=== PATIENT | male | born 2000 | race African-American/Black ===

== ENCOUNTER 2020-11-09 02:40 | Emergency (ER) | payer BC ==
[~2020-11-09] VITALS: Ht 182.9 cm; Wt 72.6 kg
[2020-11-09 02:49] VITALS: BP 114/72
--- NOTE | 2020-11-09 02:52 | NUR ---
PT TAKEN TO BED 7
[2020-11-09] MEDS ORDERED: DICYCLOMINE HCL LIQUID 20 MG, ALUMINUM HYD/MAG/SIMETHICONE 30 ML, LIDOCAINE VISCOUS 2% ... PO ONE ×3 (03:10)
[2020-11-09] MEDS ORDERED: ONDANSETRON 4 MG ODT PO ONE (03:10)
--- NOTE | 2020-11-09 03:18 | NUR ---
See patient assessment for more information. Patient lying in bed locked in lowest position, HOB elevated, x1 side rail up. Breathing even and unlabored. NAD noted, will continue to monitor. Mother at bedside.
--- NOTE | 2020-11-09 03:20 | NUR ---
ERMD at bedside assessing patient.
[2020-11-09] MEDS ORDERED: LIDOCAINE VISCOUS 2% 20 ML UDC ONE (03:22)
[2020-11-09] MEDS ORDERED: ALUMINUM HYD/MAG/SIMETHICONE 30 ML UDC ONE (03:23)
[2020-11-09] MEDS ORDERED: DICYCLOMINE HCL LIQUID 10 MG/5 ML UDC ONE (03:23)
--- NOTE | 2020-11-09 03:26 | NUR ---
Dr. Woodward examining patient.
[2020-11-09] MEDS ORDERED: ONDA-24 SL ×2 (03:48→03:58)
[2020-11-09 03:58] VITALS: BP 114/72
== END 2020-11-09 03:58 | disposition home or self-care (01) ==
LOC: MED 02:40
DX: K29.70 Gastritis, unspecified, without bleeding (principal); A05.9 Bacterial foodborne intoxication, unspecified; R11.10 Vomiting, unspecified; F12.90 Cannabis use, unspecified, uncomplicated; Z79.899 Other long term (current) drug therapy
CPT/HCPCS: 99284; Q0162

== ENCOUNTER 2020-11-28 12:35 | Emergency (ER) | payer BC ==
[~2020-11-28] VITALS: Ht 182.9 cm; Wt 77.1 kg
[~2020-11-28 12:35] MED LIST: ONDA-24 SL
--- NOTE | 2020-11-28 12:36 | NUR ---
PATIENT WHEELCHAIR ASSISTED TO BED 11
[2020-11-28 12:41] VITALS: BP 129/74
--- NOTE | 2020-11-28 12:53 | NUR ---
RECEIVED 20 Y/O MALE WITH C/O SEVERE TESTICULAR PAIN POST URINATING THIS MORNING, STATES PATIENT IS SEVERE, PATIENT IS UNABLE TO FIND A POSITION OF COMFORT. NO MEDICAL HISTORY, DENIES ALLERGIES. PATIENT IS AWAKE AND ALERT, RESP EVEN AND UNLABORED, PATIENT IS VERY ANXIOUS, CLAMMY, DIFFICULT TO COMFORT. SIDE RAILS UP FOR SAFETY, TO BEDSIDE, ORDERS REC'D.
--- NOTE | 2020-11-28 12:53 | NUR ---
DR LARES AT BEDSIDE EVALUATING PT
[2020-11-28] MEDS ORDERED: NACL 0.9% 1,000 ML IV ONE (13:00)
[2020-11-28] MEDS ORDERED: MORPHINE SULFATE 4 MG/ML SYR IVP ONE (13:00)
[2020-11-28] MEDS ORDERED: ONDANSETRON 4 MG/2 ML VIAL IVP ONE (13:00)
--- NOTE | 2020-11-28 13:04 | NUR ---
US AT BEDSIDE
--- NOTE | 2020-11-28 13:24 | NUR ---
LAB AT BEDSIDE FOR BLOOD DRAW
[2020-11-28 13:34] LABS: BASOPHILS # (AUTO) 0.1 K/uL (0.00-0.22); BASOPHILS % (AUTO) 0.7 % (0.0-2.0); EOSINOPHILS % (AUTO) 0.4 % (0.0-4.0); HEMOGLOBIN 14.3 g/dL (12.0-18.0); LYMPHOCYTES # (AUTO) 4.1 K/uL (2.0-11.5); LYMPHOCYTES % (AUTO) 44.2 % (20.5-51.1); MEAN CORPUSCULAR HEMOGLOBIN 28 pg (27-31); MEAN CORPUSCULAR HGB CONC 33 g/dL (33-37); MEAN CORPUSCULAR VOLUME 84.2 fL (80-94); MONOCYTES # (AUTO) 0.4 K/uL (0.8-1.0); NEUTROPHILS # (AUTO) 4.7 K/uL (1.8-7.7); NEUTROPHILS % (AUTO) 50.7 % (42.2-75.2); PLATELET COUNT (AUTO) 201 K/uL (140-450); RED BLOOD CELL COUNT(AUTO) 5.11 MIL/uL (4.20-6.10); RED CELL DISTRIBUTION WIDTH 12.5 % (11.6-13.7); WHITE BLOOD COUNT (AUTO) 9.3 K/uL (4.8-10.8)
--- NOTE | 2020-11-28 13:36 | NUR ---
PT GIVEN URINAL AND PROVIDED URINE SAMPLE. COLLECTION WALKED TO LAB
--- NOTE | 2020-11-28 13:50 | NUR ---
PT TAKEN TO CT VIA PRINCESS
[2020-11-28 13:51] LABS: ALBUMIN 4.7 g/dL (3.4-5.0); CARBON DIOXIDE 20.4 mmol/L (21-32); CREATININE 1.4 mg/dL (0.6-1.3); POTASSIUM 3.4 mmol/L (3.5-5.1); TOTAL BILIRUBIN 1.1 mg/dL (0.0-1.0)
[2020-11-28 13:55] LABS: BARBITURATE, URINE NEGATIVE ng/ml (NEG <=200); BENZODIAZEPINE, URINE NEGATIVE ng/mL (NEG <=200); CANNABINOID, URINE POSITIVE ng/mL (NEG <=50); COCAINE, URINE NEGATIVE ng/mL (NEG <=300); OPIATE, URINE POSITIVE ng/mL (NEG <=2000); PHENCYCLIDINE SCREEN,URINE NEGATIVE ng/mL (NEG <=25)
[2020-11-28] MEDS ORDERED: LORazepam 2 MG/ML VIAL IVP ONE (14:00)
--- NOTE | 2020-11-28 14:03 | NUR ---
PT BACK FROM CT AND CONNECTED TO FLUIDS AND MONITOR
[2020-11-28 14:11] LABS: APPEARANCE,URINE HAZY (CLEAR); BILIRUBIN,URINE NEGATIVE (NEGATIVE); BLOOD, URINE 3+ (NEGATIVE); COLOR,URINE YELLOW (YELLOW); LEUKOCYTE ESTERASE ,URINE NEGATIVE (NEGATIVE); NITRITE, URINE NEGATIVE (NEGATIVE); PH,URINE 6.5 (5.0-9.0); UGLUCOSE NEGATIVE (NEGATIVE)
[2020-11-28 14:23] LABS: RBC,URINE >100 /HPF (0-5); WBC,URINE 0-5 /HPF (0-5)
[2020-11-28] MEDS ORDERED: TAMS0.4C96 PO (14:27)
[2020-11-28] MEDS ORDERED: NAPR-54 PO (14:27)
[2020-11-28] MEDS ORDERED: CIPR500T4 PO (14:27)
--- NOTE | 2020-11-28 15:30 | NUR ---
PT C/O NAUSEA AND PAIN. PT GIVEN EMESIS BAG. DR OLVERA MADE AWARE
[2020-11-28] MEDS ORDERED: KETOROLAC 30 MG/ML VIAL IVP ONE (15:35)
[2020-11-28] MEDS ORDERED: MORPHINE SULFATE 2 MG/ML SYR IVP ONE (15:35)
[2020-11-28] MEDS ORDERED: NACL 0.9% 500 ML IV ONE (15:35)
[2020-11-28] MEDS ORDERED: KETOROLAC 15 MG/ML VIAL IVP ONE ×2 (15:40)
[2020-11-28 16:52] VITALS: BP 114/61
--- NOTE | 2020-11-28 16:53 | NUR ---
Patient discharged with v/s stable. Written and verbal after care instructions ABOUT MEDICATION AND KIDNEY STONES given and explained. Patient alert, oriented and verbalized understanding of instructions. Ambulatory with steady gait. All questions addressed prior to discharge. ID band removed. Patient advised to follow up with PMD. Rx of CIPROFLOCACIN HCL, NAPROXEN, TAMSULOSIN given. Patient educated on indication of medication including possible reaction and side effects. Opportunity to ask questions provided and answered.
== END 2020-11-28 16:53 | disposition home or self-care (01) ==
LOC: MED 12:35
DX: N20.1 Calculus of ureter (principal); N50.811 Right testicular pain; F12.10 Cannabis abuse, uncomplicated
CPT/HCPCS: 36415; 74176; 76870; 80053; 80305; 81001; 85025; 87086; 87491; 96361; 96374; 96375; 99285; J1885; J2060; J2270; J2405; J7030

== ENCOUNTER 2023-01-28 13:09 | Emergency (ER) | payer BC ==
[~2023-01-28] VITALS: Ht 185.4 cm; Wt 68.0 kg
[~2023-01-28 13:09] MED LIST changes: +CIPR500T4 PO; +NAPR-54 PO; +ONDA-188 SL; -ONDA-24 SL; +TAMS0.4C96 PO
[2023-01-28 13:16] VITALS: BP 123/75; PULSE 76; RESP 17; TEMP 97; O2SAT 99
[2023-01-28] MEDS ORDERED: ONDANSETRON 4 MG ODT PO ONE (13:20)
[2023-01-28] MEDS ORDERED: KETOROLAC 60 MG/2 ML VIAL IM ONE (13:40)
[2023-01-28] MEDS ORDERED: IBUP-2213 PO (13:43)
[2023-01-28] MEDS ORDERED: ONDA8TAB87 PO (13:43)
[2023-01-28 14:11] VITALS: BP 125/65; PULSE 75; RESP 14; TEMP 97.5; O2SAT 100
== END 2023-01-28 14:12 | disposition home or self-care (01) ==
LOC: MED 13:09
DX: R10.13 Epigastric pain (principal); R11.2 Nausea with vomiting, unspecified; Z79.899 Other long term (current) drug therapy
CPT/HCPCS: 96372; 99283; J1885; Q0162

== ENCOUNTER 2023-02-17 08:19 | Emergency (ER) | payer BC ==
[~2023-02-17] VITALS: Ht 185.4 cm; Wt 72.6 kg
[~2023-02-17 08:19] MED LIST changes: +IBUP-2213 PO; +ONDA8TAB87 PO
[2023-02-17 08:22] VITALS: BP 122/69; PULSE 60; RESP 15; TEMP 97.8; O2SAT 96
[2023-02-17] MEDS ORDERED: ONDANSETRON 4 MG/2 ML VIAL IVP ONE (08:45)
[2023-02-17] MEDS ORDERED: NACL 0.9% 1,000 ML IV SCH (08:45)
[2023-02-17] MEDS ORDERED: KETOROLAC 30 MG/ML VIAL IVP ONE (08:45)
[2023-02-17] MEDS ORDERED: DICYCLOMINE HCL LIQUID 20 MG, ALUMINUM HYD/MAG/SIMETHICONE 30 ML, LIDOCAINE VISCOUS 2% ... PO ONE ×3 (09:30)
[2023-02-17 09:34] LABS: APPEARANCE,URINE CLEAR (CLEAR); BILIRUBIN,URINE NEGATIVE (NEGATIVE); BLOOD, URINE NEGATIVE (NEGATIVE); COLOR,URINE YELLOW (YELLOW); LEUKOCYTE ESTERASE ,URINE NEGATIVE (NEGATIVE); NITRITE, URINE NEGATIVE (NEGATIVE); PROTEIN,URINE NEGATIVE (NEGATIVE); UGLUCOSE NEGATIVE (NEGATIVE)
[2023-02-17] MEDS ORDERED: ALUMINUM HYD/MAG/SIMETHICONE 30 ML UDC ONE (09:39)
[2023-02-17] MEDS ORDERED: DICYCLOMINE HCL LIQUID 10 MG/5 ML UDC ONE (09:39)
[2023-02-17] MEDS ORDERED: SUCR1SUS7 PO (10:16)
[2023-02-17] MEDS ORDERED: FAMO-90 PO (10:16)
[2023-02-17 11:03] VITALS: BP 125/72; PULSE 64; RESP 18; TEMP 98; O2SAT 98
== END 2023-02-17 11:03 | disposition home or self-care (01) ==
LOC: MED 08:19
DX: K29.70 Gastritis, unspecified, without bleeding (principal); Z79.899 Other long term (current) drug therapy
CPT/HCPCS: 81003; 99284; J1885; J2405

== ENCOUNTER 2023-06-03 10:17 | Emergency (ER) | payer BC ==
[~2023-06-03] VITALS: Ht 182.9 cm; Wt 72.6 kg
[~2023-06-03 10:17] MED LIST changes: +FAMO-90 PO; +SUCR1SUS7 PO
[2023-06-03 10:53] VITALS: BP 105/50; PULSE 68; RESP 20; TEMP 98.5; O2SAT 100
[2023-06-03] MEDS ORDERED: ONDANSETRON 4 MG ODT PO ONE (12:30)
[2023-06-03] MEDS ORDERED: DICYCLOMINE HCL LIQUID 20 MG, ALUMINUM HYD/MAG/SIMETHICONE 30 ML, LIDOCAINE VISCOUS 2% ... PO ONE ×3 (12:30)
== END 2023-06-03 12:33 | disposition left against medical advice (07) ==
LOC: MED 10:17
DX: R11.10 Vomiting, unspecified (principal); R10.9 Unspecified abdominal pain; Z53.21 Procedure and treatment not carried out due to patient leaving prior to being seen by health care provider
CPT/HCPCS: 99281

== ENCOUNTER 2023-06-03 14:13 | Emergency (ER) | payer BC ==
[~2023-06-03] VITALS: Ht 182.9 cm; Wt 72.6 kg
[2023-06-03 14:35] VITALS: BP 144/99; PULSE 65; RESP 18; TEMP 98.5; O2SAT 98
[2023-06-03] MEDS ORDERED: HALOPERIDOL IM 5 MG/ML VIAL IM ONE (15:15)
[2023-06-03 15:45] LABS: BASOPHILS # (AUTO) 0.1 K/uL (0.00-0.22); BASOPHILS % (AUTO) 0.3 % (0.0-2.0); EOSINOPHILS % (AUTO) 0.1 % (0.0-4.0); HEMATOCRIT 45.1 % (36-52); HEMOGLOBIN 15.1 g/dL (12.0-18.0); LYMPHOCYTES % (AUTO) 6.2 % (20.5-51.1); MEAN CORPUSCULAR HEMOGLOBIN 27 pg (27-31); MEAN CORPUSCULAR HGB CONC 34 g/dL (33-37); MEAN CORPUSCULAR VOLUME 81.4 fL (80-94); MONOCYTES # (AUTO) 0.7 K/uL (0.8-1.0); MONOCYTES % (AUTO) 4.5 % (1.7-9.3); NEUTROPHILS % (AUTO) 88.9 % (42.2-75.2); PLATELET COUNT (AUTO) 220 K/uL (140-450); RED BLOOD CELL COUNT(AUTO) 5.54 MIL/uL (4.20-6.10); RED CELL DISTRIBUTION WIDTH 12.9 % (11.6-13.7); WHITE BLOOD COUNT (AUTO) 15.7 K/uL (4.8-10.8)
[2023-06-03 16:08] LABS: ALBUMIN 4.8 g/dL (3.4-5.0); ANION GAP 21.8 (8-16); CALCIUM 10.1 mg/dL (8.5-10.1); CREATININE 1.2 mg/dL (0.6-1.3); POTASSIUM 3.8 mmol/L (3.5-5.1); TOTAL BILIRUBIN 0.9 mg/dL (0.0-1.0); TOTAL PROTEIN, SERUM 8.8 g/dL (6.4-8.2)
[2023-06-03 16:44] LABS: APPEARANCE,URINE CLEAR (CLEAR); BILIRUBIN,URINE NEGATIVE (NEGATIVE); BLOOD, URINE NEGATIVE (NEGATIVE); COLOR,URINE YELLOW (YELLOW); LEUKOCYTE ESTERASE ,URINE NEGATIVE (NEGATIVE); NITRITE, URINE NEGATIVE (NEGATIVE); PH,URINE 8.5 (5.0-9.0); PROTEIN,URINE 2+ (NEGATIVE); UGLUCOSE NEGATIVE (NEGATIVE)
[2023-06-03 17:01] LABS: AMPHETAMINE, URINE NEGATIVE ng/ml (NEG <=1000); BARBITURATE, URINE NEGATIVE ng/ml (NEG <=200); BENZODIAZEPINE, URINE NEGATIVE ng/mL (NEG <=200); CANNABINOID, URINE POSITIVE ng/mL (NEG <=50); COCAINE, URINE NEGATIVE ng/mL (NEG <=300); OPIATE, URINE NEGATIVE ng/mL (NEG <=2000); PHENCYCLIDINE SCREEN,URINE NEGATIVE ng/mL (NEG <=25)
[2023-06-03 17:04] LABS: BACTERIA,URINE None Seen /HPF (None Seen); HYALINE CASTS, URINE 0-10 /LPF (None Seen); MUCUS,URINE 1+ /LPF (None Seen); RBC,URINE 0-5 /HPF (0-5); SQUAMOUS EPITHELIAL CELL,UR 0-3 (FEW) /LPF (0-3 (FEW)); TRICHOMONAS,URINE None Seen /HPF (None Seen); WBC,URINE 0-5 /HPF (0-5); YEAST,URINE None Seen /HPF (None Seen)
== END 2023-06-03 16:23 | disposition left against medical advice (07) ==
LOC: MED 14:13
DX: R11.2 Nausea with vomiting, unspecified (principal); R10.13 Epigastric pain; F12.90 Cannabis use, unspecified, uncomplicated; F17.200 Nicotine dependence, unspecified, uncomplicated; Z79.899 Other long term (current) drug therapy; Z79.1 Long term (current) use of non-steroidal anti-inflammatories (NSAID)
CPT/HCPCS: 36415; 80053; 80305; 81001; 83690; 85025; 96372; 99283; J1630